=== PATIENT | female | born 1990 | race Caucasian/White ===

== ENCOUNTER 2017-08-01 19:01 | Inpatient (IN) | payer OTHER ==
[~2017-08-01] VITALS: Ht 167.6 cm; Wt 70.3 kg
--- NOTE | 2017-08-02 00:50 | NUR ---
PRE-ADMISSION NOTE Px is a 27 y/o female, seen at intake, A&Ox4, no SOB with mild anxiety noted at this time. Discussed with patient the admission policies of the unit. Patient is coherent and able to respond to questions appropriately. Px is ambulatory with steady gait. Vital signs taken and as follows: BP: 130/79, OR: 90, RR: 18, O2: 96%, T: 97.6, PA: 0. Px verbalized understanding of instructions and teachings regarding disposal of narcotic and other controlled home medications, unit protocols such as taking of vital signs Q4H and handling and disposal of contraband. We'll continue with admission upon px's arrival on the unit.
[2017-08-02] MEDS ORDERED: ESCI10TA PO (01:19)
[2017-08-02] MEDS ORDERED: LOPERAMIDE HCL 2 MG CAPSULE PO PRN ×2 (02:00)
[2017-08-02] MEDS ORDERED: LORAZEPAM 1 MG TABLET PO PRN (02:00)
[2017-08-02] MEDS ORDERED: ONDANSETRON 4 MG/2 ML VIAL IM PRN (02:00)
[2017-08-02] MEDS ORDERED: HYDROXYZINE PAMOATE 25 MG CAPSULE PO PRN (02:00)
[2017-08-02] MEDS ORDERED: diphenhydrAMINE 50 MG CAPSULE PO PRN (02:00)
[2017-08-02] MEDS ORDERED: ACETAMINOPHEN 325 MG TABLET PO PRN (02:00)
[2017-08-02] MEDS ORDERED: MIRALAX 17 GM POWD.PACK PO PRN (02:00)
[2017-08-02] MEDS ORDERED: IBUPROFEN 600 MG TABLET PO PRN (02:00)
[2017-08-02] MEDS ORDERED: MAG HYDROX/AL HYDROX/SIMETH 30 ML LIQUID UDC PO PRN (02:00)
[2017-08-02] MEDS ORDERED: LORAZEPAM 2 MG/1 ML VIAL IM PRN (02:00)
[2017-08-02] MEDS ORDERED: THIAMINE HCL 200 MG/2 ML VIAL IM ONE (02:00)
[2017-08-02] MEDS ORDERED: MAGNESIUM HYDROXIDE 30 ML LIQUID UDC PO PRN (02:00)
[2017-08-02] MEDS ORDERED: ONDANSETRON ODT 4 MG TAB.RAPDIS SL PRN (02:00)
--- NOTE | 2017-08-02 02:00 | NUR ---
ADMISSION NOTE Deanne is a 27 y/o female admitted on 08/02/17 for ETOH dependence, arrived on the unit at 0140. Skin assessment done, no contraband found, and skin is intact. Px has NKA, denies history of seizures. Px was able to provide UDS. Upon admission CIWA 3, BP: 127/79, IA: 78, R: 18, O2: 97%, T: 98.2, PA: 0. Weight 155, height 56. Px reports he does not have a PCP, smokes 3-4 sticks of cigarettes daily, denies being hospitalized within past 30 days. Px is able to understand and respond to all questions pertaining to his hospitalization. Substance Abuse History is as follows: 1. Whiskey 750 ml 2x a week, last intake of 300 ml on 08/01/17. Px has been drinking at this rate for the past year. Px started drinking at age 17. Pxs longest sober period was 1 year on 2013. Deanne is first time on detox. Deanne reports her sister was alcoholic. PMH: Anxiety, depression, bulimia. Px has surgical operation on left humerus due to comminuted fx 9 years ago. Px denies any hx of seizures. Px is taking Lexapro 10 mg a day at home for anxiety and depression. Upon assessment, px is A&Ox4, px is mildly intoxicated, presents with anxiety, and skin is flushed. Respirations even and unlabored. Denies SOB, chest pain, N/V/D. Bowel sounds active x 4, abdomen soft. Last BM was 08/01/2017. PERRLA. Px denies SI/HI. Educational information provided and left at bedside. Px oriented to room and encouraged to notify staff with any concerns. Safety measures in place. Call light within reach, side rails up x 2, bed locked and in low position. We'll continue to monitor.
[2017-08-02 02:15] LABS: *URINE HCG, QUAL NEGATIVE (NEGATIVE)
[2017-08-02] MEDS ORDERED: THIAMINE HCL 200 MG/2 ML VIAL ONE (02:32)
[2017-08-02 03:49] LABS: *AMPHETAMINE, URINE NEGATIVE (NEGATIVE); *BARBITURATE, URINE NEGATIVE (NEGATIVE); *CANNABINOID, URINE NEGATIVE (NEGATIVE); *COCCAINE, URINE NEGATIVE (NEGATIVE); *PHENCYCLIDINE SCREEN,URINE NEGATIVE (NEGATIVE)
[2017-08-02 03:58] LABS: *OPIATE, URINE NEGATIVE (NEGATIVE)
[2017-08-02 04:00] VITALS: BP 124/76
[2017-08-02 04:02] LABS: BASOPHILS # (AUTO) 0.1 K/uL (0.0-8.0); BASOPHILS % (AUTO) 1.5 % (0.0-2.0); EOSINOPHILS # (AUTO) 0.1 K/uL (0.0-0.7); EOSINOPHILS % (AUTO) 1.8 % (0.0-7.0); HEMATOCRIT 40.1 % (37-47); HEMOGLOBIN 13.5 G/DL (12.0-16.0); LYMPHOCYTES # (AUTO) 1.5 K/UL (0.8-4.8); LYMPHOCYTES % (AUTO) 29.9 % (20.5-51.5); MEAN CORPUSCULAR HEMOGLOBIN 34.5 UUG (27.0-31.0); MEAN CORPUSCULAR HGB CONC 34 g/dL (32.0-37.0); MEAN CORPUSCULAR VOLUME 102.6 FL (81.0-99.0); MONOCYTES # (AUTO) 0.6 K/UL (0.1-1.30); MONOCYTES % (AUTO) 12.3 % (0.0-11.0); NEUTROPHILS # (AUTO) 2.9 K/UL (1.8-8.9); NEUTROPHILS % (AUTO) 54.5 % (38.5-71.5); PLATELET COUNT (AUTO) 285 K/UL (150-450); WHITE BLOOD COUNT (AUTO) 5.2 K/UL (4.0-11.2)
[2017-08-02 04:05] LABS: BILIRUBIN,TOTAL 0.4 mg/dL (0.2-1.0); CREATININE 0.8 mg/dL (0.6-1.3); MAGNESIUM 1.9 mg/dL (1.8-2.4); POTASSIUM 3.7 mmol/L (3.5-5.1); TOTAL PROTEIN, SERUM 8.1 g/dL (6.4-8.2)
[2017-08-02 04:16] LABS: THYROID STIMULATING HORMONE 2.094 mIU/mL (0.358-3.740)
--- NOTE | 2017-08-02 07:17 | NUR ---
End of Shift Notes 27 y/o female admitted on 08/02/17 for ETOH dependence. Px has NKA, on regular-vegetarian diet and wishes to be on Full Code. A&Ox4. Respirations are even and unlabored. Oral intake of 800 ml, voided 2x, No BM. Slept for [address] Safety measures in place. Call light within reach, side rails up x 2, bed locked and in low position. We'll continue to monitor.
--- NOTE | 2017-08-02 07:26 | NUR ---
START OF SHIFT NOTE: Received report from shift foreman nurse. Pt is a 27 y/o female admitted on 08/02/17 for ETOH dependence. Pt on prn's only. Pt is alert and oriented X4. Color good, skin warm and dry. Respirations even and unlabored. Resting in bed. Safety precautions observed. Call light within reach. Will continue to monitor.
[2017-08-02 08:15] VITALS: BP 124/76
--- NOTE | 2017-08-02 09:00 | NUR ---
VSS CIWA 8 Ativan 1 mg po prn given
[2017-08-02] MEDS: LORAZEPAM 1 MG TABLET PO PRN ×2 (09:02→13:26)
[2017-08-02] MEDS: MULTIVITAMINS,THERAPEUTIC TABLET PO SCH (09:03)
[2017-08-02] MEDS: FOLIC ACID 1 MG TABLET PO SCH (09:03)
[2017-08-02] MEDS: THIAMINE HCL 100 MG TABLET PO SCH (09:03)
--- NOTE | 2017-08-02 10:05 | NUR ---
Pt feels improved after Ativan prn CIWA 5
[2017-08-02] MEDS ORDERED: INFLUENZA VACCINE 2017-2018 0.5 ML DISP.SYRIN IM ONE (11:30)
[2017-08-02] MEDS ORDERED: PNEUMOCOCCAL 23-VAL P-SAC VAC 0.5 ML VIAL IM ONE (11:30)
[2017-08-02] MEDS: ESCITALOPRAM OXALATE 10 MG TABLET PO SCH (11:39)
--- NOTE | 2017-08-02 12:00 | NUR ---
Flu and Pneumonia vaccines administered
[2017-08-02 12:44] VITALS: BP 120/76
--- NOTE | 2017-08-02 13:30 | NUR ---
C/o tremors, nausea and anxiety. CIWA 12 Ativan 1mg po prn given
[2017-08-02] MEDS ORDERED: NICOTINE POLACRILEX 4 MG GUM-PK OF TEN BC PRN (14:15)
[2017-08-02] MEDS ORDERED: NICOTINE 14 MG/24HR PATCH TD PRN (14:15)
--- NOTE | 2017-08-02 14:30 | NUR ---
Pt sleeping after Ativan 1mg prn CIWA 6
[2017-08-02 17:03] VITALS: BP 122/76
--- NOTE | 2017-08-02 18:24 | NUR ---
END OF SHIFT NOTE: Report given to shift boss nurse. Pt is a 27 y/o female admitted on 08/02/17 for ETOH dependence. Pt on prn's only. Pt is alert and oriented X4. Color good, skin warm and dry. Respirations even and unlabored. Vital signs have remained stable throughout shift. Ativan 1mg po prn given X2. Last CIWA 6. Resting in bed. Safety precautions observed. Call light within reach.
--- NOTE | 2017-08-02 19:30 | NUR ---
Start of Shift Notes Received 27 y/o female admitted on 08/02/17 for ETOH dependence. Px has NKA, on regular-vegetarian diet and on full Code. A&Ox4. During the rounds at 1930, px complained of body aches 4/10 and wanted Motrin for it. Respirations are even and unlabored. Safety measures in place. Call light within reach, side rails up x 2, bed locked and in low position. We'll continue to monitor.
[2017-08-02 20:00] VITALS: BP 124/93
--- NOTE | 2017-08-02 20:54 | NUR ---
PRN Motrin Px complained of body aches 12/16. Motrin 600 mg/tab, 1 tab given PO as PRN med. We'll continue to monitor.
[2017-08-02] MEDS ORDERED: LORAZEPAM 1 MG TABLET PO ONE (21:00)
--- NOTE | 2017-08-02 22:00 | NUR ---
Reassessment of Pain Px verbalized that her body aches reduced to 1-2/10 after an hour of administration of Motrin 600 mg tablet. We'll continue to monitor.
[2017-08-03] VITALS: BP 123/86
[2017-08-03 04:00] VITALS: BP 121/83
--- NOTE | 2017-08-03 04:00 | NUR ---
CIWA deferred CIWA deferred due to the px is sleeping. To assess if the px is awake per doctor's order. Respirations are even and unlabored. We'll continue to monitor.
--- NOTE | 2017-08-03 07:02 | NUR ---
End of Shift Notes 27 y/o female px admitted on 08/02/17 for ETOH dependence. Px has NKA, on regular-vegetarian diet and on full Code. A&Ox4. During the shift, px complained of body aches 4/10 and wanted Motrin for it. Motrin 600 mg/tab, 1 tab given PO as PRN med. Oral intake of 1,300 ml, voided 2x, no BM. Slept for 7.5 hours. Respirations are even and unlabored. Safety measures in place. Call light within reach, side rails up x 2, bed locked and in low position. We'll continue to monitor.
--- NOTE | 2017-08-03 07:32 | NUR ---
START OF SHIFT NOTE: Received report from experimental rocketsled mechanic nurse. Pt is a 27 y/o female admitted on 08/02/17 for ETOH dependence. Pt on prn's only. Pt is alert and oriented X4. Color good, skin warm and dry. Respirations even and unlabored. Resting in bed. Safety precautions observed. Call light within reach. Will continue to monitor.
[2017-08-03 08:00] VITALS: BP 118/83
[2017-08-03] MEDS ORDERED: TUBERCULIN,PURIF.PROT.DERIV. 5 TU/0.1 ML TEST ID ONE (09:00)
--- NOTE | 2017-08-03 09:00 | NUR ---
VSS CIWA 9 c/o tremors, sweating, anxiety Ativan 1mg po prn given
[2017-08-03 09:09] LABS: HEPATITIS B SURFACE AG Negative (Negative)
[2017-08-03] MEDS: FOLIC ACID 1 MG TABLET PO SCH (09:15)
[2017-08-03] MEDS: ESCITALOPRAM OXALATE 10 MG TABLET PO SCH (09:15)
[2017-08-03] MEDS: LORAZEPAM 1 MG TABLET PO PRN (09:15)
[2017-08-03] MEDS: THIAMINE HCL 100 MG TABLET PO SCH (09:15)
[2017-08-03] MEDS: MULTIVITAMINS,THERAPEUTIC TABLET PO SCH (09:16)
--- NOTE | 2017-08-03 10:00 | NUR ---
Pt feels improved after Ativan prn
[2017-08-03 12:55] VITALS: BP 120/83
[2017-08-03] MEDS: LORAZEPAM 1 MG TABLET PO SCH ×2 (14:25→20:40)
--- NOTE | 2017-08-03 15:00 | NUR ---
MAGGIE WHALEY 7 Pt requested Nicotine patch
[2017-08-03] MEDS ORDERED: LORAZEPAM 1 MG TABLET PO PRN ×2 (15:15)
[2017-08-03 16:00] VITALS: BP 120/83
--- NOTE | 2017-08-03 18:38 | NUR ---
END OF SHIFT NOTE: Report given to plant operator/shift supervisor nurse. Pt is a 27 y/o female admitted on 08/02/17 for ETOH dependence. Pt on modified Ativan taper. Tolerating well. Pt is alert and oriented X4. Color good, skin warm and dry. Respirations even and unlabored. Vital signs have remained stable throughout shift. Last CIWA 7 @ 1500. Pt is using Nicotine patch. Safety precautions observed. Call light within reach.
[2017-08-03 20:00] VITALS: BP 137/88
--- NOTE | 2017-08-03 20:00 | NUR ---
Start of Shift Notes Received 27 y/o female admitted on 08/02/17 for ETOH dependence. Px has NKA, on regular-vegetarian diet and on full Code. A&Ox4. During the rounds at 1999, No complaints made. Respirations are even and unlabored. Safety measures in place. Call light within reach, side rails up x 2, bed locked and in low position. We'll continue to monitor.
[2017-08-03] MEDS: GABAPENTIN 300 MG CAPSULE PO SCH (20:40)
[2017-08-04] VITALS: BP 127/84
[2017-08-04 04:00] VITALS: BP 126/82
--- NOTE | 2017-08-04 07:07 | NUR ---
End of Shift Notes 27 y/o female admitted on 08/02/17 for ETOH dependence. Px has NKA, on regular-vegetarian diet and on full Code. A&Ox4. During the shift, px had no complaints. Oral intake of 1,700 ml, voided 2x, No BM. Slept for 6 hours. Respirations are even and unlabored. Safety measures in place. Call light within reach, side rails up x 2, bed locked and in low position. We'll continue to monitor.
--- NOTE | 2017-08-04 07:40 | NUR ---
START OF SHIFT Received report from day shift nurse. Pt is a 27 yo female admitted to [facility] on 08/02 for ETOH dependence. She is lying in bed resting. Respirations even and unlabored. Pt is A&O and ambulatory. NKA, full code status, and on a regular diet. PMH of anxiety, depression, bulimia, L humerus fracture, and UTI. On admission she reported drinking ETOH 750ml 2 days per week. Modified Ativan taper started. Facial flushing observed. Fall and seizure precautions in place. Bed is down with call light in reach.
[2017-08-04 08:00] VITALS: BP 132/95
[2017-08-04] MEDS ORDERED: LORAZEPAM 1 MG TABLET PO SCH (09:00)
[2017-08-04] MEDS: MULTIVITAMINS,THERAPEUTIC TABLET PO SCH (09:04)
[2017-08-04] MEDS: GABAPENTIN 300 MG CAPSULE PO SCH ×2 (09:05→20:38)
[2017-08-04] MEDS: FOLIC ACID 1 MG TABLET PO SCH (09:05)
[2017-08-04] MEDS: ESCITALOPRAM OXALATE 10 MG TABLET PO SCH (09:05)
[2017-08-04] MEDS: THIAMINE HCL 100 MG TABLET PO SCH (09:11)
[2017-08-04 12:00] VITALS: BP 126/81
[2017-08-04 16:00] VITALS: BP 135/91
--- NOTE | 2017-08-04 19:20 | NUR ---
END OF SHIFT Report provided to day shift nurse. Pt is a 27 yo female admitted to [facility] on 08/02 for ETOH dependence. She is attending a group meeting. Pt is A&O and ambulatory. NKA, full code status, and on a regular diet. PMH of anxiety, depression, bulimia, L humerus fracture, and UTI. On admission she reported drinking ETOH 750ml 2 days per week. Modified Ativan taper completed today and she is scheduled for discharge tomorrow. Pt attended group meetings. Last CIWA was 1 and she drank 1750mL. No PRN medications administered. Pt is compliant with treatment. Fall and seizure precautions in place. Bed is down with call light in reach.
[2017-08-04 20:00] VITALS: BP 135/88
--- NOTE | 2017-08-04 20:00 | NUR ---
START OF SHIFT NOTE RECEIVED REPORT FROM DAY SHIFT NURSE. PATIENT IS A 27 YEAR OLD FEMALE ADMITTED FOR ETOH DEPENDENCE. PATIENT IS MEDICALLY CLEARED TO BE DISCHARGE TOMORROW. PATIENT COMPLETED MODIFIED ATIVAN TAPER. PATIENT REPORTS PMH OF ANXIETY, DEPRESSION, BULIMIA, FRACTURE (LEFT HUMERUS) AND UTI. PATIENT DID NOT REQUIRE ANY PRN MEDICATION. LAST CIWA 1. RECEIVED PATIENT IN HER ROOM, ALERT AND ORIENTED X 4. RESPIRATION EVEN AND UNLABORED. PATIENT REPORTS NO ANXIETY, NO N/V, HAS GOOD APPETITE, HAD BM, DRINKING FLUIDS AND ATTENDED GROUPS. PER PATIENT NEURONTIN IS REALLY EFFECTIVE. ON FALL/SEIZURE PRECAUTION. SAFETY MEASURES IN PLACE. CALL LIGHT IN REACH. WILL CONTINUE TO MONITOR.
[2017-08-04] MEDS ORDERED: DIPH50CA37 PO (21:15)
[2017-08-04] MEDS ORDERED: HYDR-3895 PO (21:15)
[2017-08-04] MEDS ORDERED: GABA-534 PO (21:15)
[2017-08-04] MEDS ORDERED: IBUP-1955 PO (21:15)
--- NOTE | 2017-08-04 23:00 | NUR ---
ENDORSED CARE PATIENT ENDORSED TO CHIKA Cruz PATIENT ALERT AND ORIENTED X 4. PATIENT DID NOT REQUIRE ANY PRN MEDICATION. LAST CIWA 0. PATIENT DID NOT C/O PAIN. PATIENT IS SCHEDULED TO BE DISCHARGE TOMORROW.
--- NOTE | 2017-08-04 23:00 | NUR ---
Received pt in room and in stable condition. No s/s of distress noted. Patient alert & oriented x4. No complaints noted at this time. Ciwa 0. Will continue to monitor patient.
[2017-08-05 04:00] VITALS: BP_SYST 111; BP_SYST 84; BP_DIAS 50; BP_DIAS 78
--- NOTE | 2017-08-05 07:00 | NUR ---
End of Shift Note: Pt had an uneventful night. Patient remains stable and vitals noted WNL. Pt completed scheduled taper and is scheduled to be discharge today. Pt did not received any PRN medications and Last CIWA noted is 0. Pt slept for a total of 4 hours. Fluid intake: 1000ml, Voided 2x with no bowel movement. All needs attended & met. Safety measures in place. Will endorse pt to day shift nurse.
--- NOTE | 2017-08-05 07:40 | NUR ---
START OF SHIFT Received report from harbour master nurse. Pt is a 27 yo female admitted to [place] on 08/02 for ETOH dependence. She is lying in bed resting. Respirations even and unlabored. Pt is A&O and ambulatory. NKA, full code status, and on a regular diet. PMH of anxiety, depression, bulimia, L humerus fracture, and UTI. On admission she reported drinking ETOH 750ml 2 days per week. Modified Ativan taper completed and she is discharging today. No s/s of withdrawal noted. Fall and seizure precautions in place. Bed is down with call light in reach.
[2017-08-05] MEDS: THIAMINE HCL 100 MG TABLET PO SCH (08:17)
[2017-08-05] MEDS: GABAPENTIN 300 MG CAPSULE PO SCH (08:17)
[2017-08-05] MEDS: ESCITALOPRAM OXALATE 10 MG TABLET PO SCH (08:17)
[2017-08-05] MEDS: FOLIC ACID 1 MG TABLET PO SCH (08:17)
[2017-08-05] MEDS: MULTIVITAMINS,THERAPEUTIC TABLET PO SCH (08:18)
--- NOTE | 2017-08-05 09:45 | NUR ---
DISCHARGE Pt is in stable condition. Vitals WNL, pt alert and oriented x4, skin intact, Pt denies any SI/HI. All discharge paperwork completed dated and signed. Pt educated about discharge instructions, what to do after discharge when to contact MD as well as the s/s reportable to MD, pt verbalized understanding. Pt's last CIWA was a 0 taken at 0800. Pt was discharged from [facility] on 08/05/17 at 0940. Pt left the building with all of her belongings and medications. MD has been contacted and aware of pt's d/c.
== END 2017-08-05 09:40 | disposition other institution (70) | DRG 895 ==
LOC: SRC 08-02 00:48
PROVIDERS: ADMIT Internal Medicine; ATTEND Internal Medicine
PROC: HZ2ZZZZ Detoxification Services for Substance Abuse Treatment (ICD-10-PCS; principal; 2017-08-02)
PROC: HZ41ZZZ Group Counseling for Substance Abuse Treatment, Behavioral (ICD-10-PCS; 2017-08-03)
PROC: HZ31ZZZ Individual Counseling for Substance Abuse Treatment, Behavioral (ICD-10-PCS; 2017-08-04)
DX: F10.230 Alcohol dependence with withdrawal, uncomplicated (principal); F33.1 Major depressive disorder, recurrent, moderate; F50.9 Eating disorder, unspecified; F17.210 Nicotine dependence, cigarettes, uncomplicated; Y90.9 Presence of alcohol in blood, level not specified; F41.9 Anxiety disorder, unspecified; F90.9 Attention-deficit hyperactivity disorder, unspecified type; Z81.1 Family history of alcohol abuse and dependence; Z81.8 Family history of other mental and behavioral disorders; Z91.89 Other specified personal risk factors, not elsewhere classified; Z20.5 Contact with and (suspected) exposure to viral hepatitis
CPT/HCPCS: 36415; 70030-TC; 80307; 83690; 83735; 84443; 84703; 85025; 86592; 86705; 86803; 87340; 87806; 90686; 90732; G0480; J3411